=== PATIENT | female | born 1965 | race African-American/Black ===

== ENCOUNTER 2017-04-10 11:35 | Emergency (ER) | payer MEDICAID, OTHER ==
[2017-04-10 11:50] VITALS: TEMP 97
[2017-04-10] MEDS ORDERED: SODIUM CHLORIDE 0.9% 500 ML 500 ML IV SCH (12:00)
[2017-04-10 12:17] LABS: BASOPHILS % (AUTO) 1 % (0-3); EOSINOPHILS % (AUTO) 3 % (0-9); HEMATOCRIT 40 % (35-47); MEAN CORPUSCULAR HGB CONC 33.1 gm/dl (32.0-36.0); MEAN CORPUSCULAR VOLUME 88 fL (81-99); MONOCYTES % (AUTO) 5.9 % (0-12); NEUTROPHILS % (AUTO) 65.4 % (37-80)
[2017-04-10 12:37] LABS: ALBUMIN 3.2 gm/dl (3.4-5.0); ALT 21 IU/L (14-63); CALCIUM 8.3 mg/dl (8.5-10.1); GLOM FILT RATE 77 mL/min (>60); POTASSIUM 3.3 mMol/L (3.5-5.1); SODIUM 143 mMol/L (136-145)
[2017-04-10] MEDS ORDERED: SODIUM CHLORIDE 0.9% 500 ML 500 ML IV ONE (12:45)
[2017-04-10 13:42] VITALS: BP 106/82; PULSE 83; RESP 18; O2SAT 99
== END 2017-04-10 13:39 | disposition home or self-care (01) | DRG 101 ==
LOC: ED 11:35
DX: R56.9 Unspecified convulsions (principal); R06.02 Shortness of breath
CPT/HCPCS: 36415; 70450; 71010; 80053; 83880; 84484; 85025; 85378; 87804; 93005; 96365; 99284; 99285

== ENCOUNTER 2017-08-22 06:54 | Day surgery (SDC) | payer MEDICAID, OTHER ==
[2017-08-22] MEDS ORDERED: PROPOFOL 500 MG/50 ML EMU IV ONE (07:38)
[2017-08-22] MEDS ORDERED: LIDOCAINE HCL 1% MPF SOL ONE (07:38)
[2017-08-22 08:37] VITALS: RESP 20
[2017-08-22 08:48] VITALS: TEMP 97.7
[2017-08-22 09:02] VITALS: O2SAT 98
[2017-08-22 09:11] VITALS: BP 149/87; PULSE 65
== END 2017-08-22 09:20 | disposition home or self-care (01) ==
LOC: SURG 06:54
PROVIDERS: ATTEND Internal Medicine Gastroenterology
DX: R13.10 Dysphagia, unspecified (principal); K22.2 Esophageal obstruction; K44.9 Diaphragmatic hernia without obstruction or gangrene
CPT/HCPCS: 43239; 43249; J2001; J2704

== ENCOUNTER 2017-10-10 08:58 | Day surgery (SDC) | payer OTHER ==
[~2017-10-10 08:58] MED LIST: LIDOCAINE HCL 1% MPF SOL ONE; PROPOFOL 500 MG/50 ML EMU IV ONE
[2017-10-10 09:46] VITALS: TEMP 97.4
[2017-10-10 10:22] VITALS: PULSE 96; RESP 18; O2SAT 96
[2017-10-10 10:23] VITALS: BP 186/115
== END 2017-10-10 10:29 | disposition home or self-care (01) ==
LOC: SURG 08:58
PROVIDERS: ATTEND Internal Medicine Gastroenterology
DX: K22.2 Esophageal obstruction (principal); R13.10 Dysphagia, unspecified; K44.9 Diaphragmatic hernia without obstruction or gangrene
CPT/HCPCS: 43249; J2001; J2704